=== PATIENT | female | born 1985 | race Caucasian/White ===

== ENCOUNTER → 2016-10-29 | Outpatient (CLI) | payer BC | LOC: MW.CHOBGYN 10:42 | PROVIDERS: ATTEND Nurse Practitioner Women's Health | DX: N92.1 Excessive and frequent menstruation with irregular cycle (principal); Z97.5 Presence of (intrauterine) contraceptive device; R79.89 Other specified abnormal findings of blood chemistry | CPT/HCPCS: 36415; 84439; 84443; 84481; 84703; 86376; 86800 ==

== ENCOUNTER → 2016-11-03 | Outpatient (CLI) | payer BC ==
--- NOTE | 2016-11-05 20:13 | US ---
EXAMINATION: Transvaginal pelvic ultrasound HISTORY: Excessive and frequent menstruation COMPARISON: None TECHNIQUE: Grayscale, color Doppler, spectral Doppler images obtained transvaginally. FINDINGS: The uterus appears normal in size, contour, and echogenicity without a focal uterine mass. There is an IUD within the endometrial stripe, which measures 5 mm. Both the left and right ovaries are normal in size, contour, and echogenicity demonstrating normal c olor and spectral Doppler flow. Tiny follicles are noted. No adnexal masses or significant free pelv ic fluid. IMPRESSION: Grossly unremarkable transvaginal pelvic ultrasound.
== END | disposition home or self-care (01) ==
LOC: MW.US 13:14
PROVIDERS: ATTEND Nurse Practitioner Women's Health
DX: N92.1 Excessive and frequent menstruation with irregular cycle (principal)
CPT/HCPCS: 76830; 76830-26